=== PATIENT | female | born 1970 | race Native Hawaiian/Other Pacific Islander ===

== ENCOUNTER 2023-06-06 15:03 | Observation (INO) | payer OTHER ==
[~2023-06-06] VITALS: Ht 160 cm; Wt 115.0 kg
--- NOTE | 2023-06-06 17:00 | NUR ---
PT ARRIVES TO MED-SURG USES RESTROOM THEN MOVES TO THE CHAIR USING A WALKER NOT WT BEARING. PT HAS BOOT IN PLACE AGREES IT IS NOT TO BE REMOVED. LLE ELEVATED AND ICE APPLIED. PT RATES PAIN 2/10 AT THIS TIME. REPORT RECEIVED FROM GAYLE CORREA PT HAS HAD A FLEXARIL WELL TOLRDOL PRIOR TO TRANSPORT TO [facility]. PT DENIES NEED OF ADDITIONAL PAIN CONTROL AT THIS TIME. CALL LIGHT IN LAP PT ORIENTED TO ROOM AND ROUTINE. DR HAYWARD IS IN ROUTE.
[2023-06-06 17:03] VITALS: BP 151/83
--- NOTE | 2023-06-06 18:38 | NUR ---
DR HAYWARD IN TO SEE THIS PT ALL QUESTIONS ANSWERED AND SURGICAL PLAN MADE. PT REMAINS UP IN THE CHAIR. DECLINES OFFER OF PAIN MEDICATION DISCUSSED KEEPING PAIN UNDER CONTROL OPPOSED TO CATCHING UP PT VERBALIZES UNDERSTANDING.
--- NOTE | 2023-06-06 19:30 | NUR ---
REPORT RECEIVED FROM MADELINE MADSEN. pt UP IN CHAIR, LEGS ELEVATED. BOOT IN PLACE. pt DRINKING WATER. RATES PAIN 3/. DENIES NEEDS FOR MEDICATION. CALL LIGHT IN REACH. pt VERBALIZES UNDERSTANDING TO CALL BEFORE GETTING UP.
--- NOTE | 2023-06-06 19:42 | NUR ---
PHONE CALL TO , TELEPHONE ORDERS FROM [employer] FOR IVF TKO, ONE TIME PO TYLENOL ADMNISTRATION AND FOR TXA MECHANICAL FIELD ENGINEER TO OR. ORDERS VERIFIED USING REPEAT BACK METHOD. EMAR UPDATED.
[2023-06-06 21:14] VITALS: BP 140/85
--- NOTE | 2023-06-06 21:41 | NUR ---
pt UP IN CHAIR. ASSISTED TO PIVOT NON-WEIGHT BEARING TO HOSPITAL BED. pt RATES PAIN 3.5/[address]. SCHEDULED MEDICATION ADMINSITERED, PRN TORADOL. IV SITE FLUSHED WNL, BRISK BLOOD RETURN. ASSESSMENT COMPLETE. BED MADE FOR . pt REQUESTS TO SIT AT SIDE OF BED CALL LIGHT IN REACH. VERBALIZES INSTRUCTION TO USE CALL LIGHT BEFORE GETTING OUT OF BED.
[2023-06-07 00:10] VITALS: BP 128/73
--- NOTE | 2023-06-07 00:15 | NUR ---
pt AWAKENS TO RN ENTERING ROOM. pt ALLOWED DRINKS OF WATER, NOW NPO FOR PROCEDURE. 1PA WITH FWW TO PIVOT TO BSC FOR VOID. UNDERWEAR REMOVED, CHUX PLACED ON BED. pt IMPULSIVE WITH WALKER USE, DOES NOT FOLLOW INSTRUCTION TO STAY WITH WALKER, TURNS AND THROWS BODY ON BED. STATES "I SCARED YOU DIDN'T I". pt EDUCATION PROVIDED. VSS. pt DENIES PAIN AT REST, DENIES NEED FOR PRN MEDICATIONS. CALL LIGHT IN REACH. IN ROOM ON COUCH.
--- NOTE | 2023-06-07 02:16 | NUR ---
CHECKED ON pt. RESTING IN BED WITH EYES CLOSED. BREATHING EQUAL AND UNLABORED. AWAKE IN ROOM.
--- NOTE | 2023-06-07 04:17 | NUR ---
pt LYING IN BED ON BACK. BREATHING EQUAL AND UNLABORED. BOOT IN PLACE ON LEFT LEG.
[2023-06-07 06:29] VITALS: BP 120/72
--- NOTE | 2023-06-07 06:56 | NUR ---
SURGERY WIPE DOWN COMPLETE. 1PA WITH FWW, NON-WEIGHT BEARING TO BSC FOR VOID. BACK IN BED, LINENS, GOWN CHANGED. SCD ON RIGHT LEG. PREOP ANTIBIOTIC AND TXA HANGING. pt HAS CALL LIGHT IN REACH. NO COMPLAINTS OF PAIN.
--- NOTE | 2023-06-07 07:22 | NUR ---
PT TO O/R AT TIME OF SHIFT REPORT.
--- NOTE | 2023-06-07 08:37 | NUR ---
UR NOTE MCG ANKLE FRACTURE, CLOSED, OPEN REDUCTION, INTERNAL FIXATION (ISC) OBSERVATION 06/06/23 MET CLINICAL INDICATIONS FOR ADMISSION - OBSERVATION STATUS
[2023-06-07] MEDS ORDERED: HYDROCODON-ACE1 EA11 PO (08:42)
[2023-06-07] MEDS ORDERED: DICLOFENAC SODI75 MG PO (08:42)
[2023-06-07] MEDS ORDERED: ASPIRIN EC325 MG PO (08:43)
[2023-06-07 09:45] VITALS: BP 95/53
--- NOTE | 2023-06-07 09:53 | NUR ---
PT FROM O/R VIA BED, REPORT RECEIVED. IS PRESENT. PT ALERT AND INTERACTIVE DENIES PAIN. FRESH H20 AT BEDSIDE WITH CALL LIGHT, PHONE, AND NEEDED ITEMS. PT DENIES HUNGER OR NEED OF ANYTHING
--- NOTE | 2023-06-07 10:20 | NUR ---
IN TO RROM, PATIENT AWAKE TESTING ON PHONE. DIMAS AT THE BEDSIDE. DISCUSSED GETTING SCOOTER FROM [facility]. CONTACTED [facility], SCOOTER AVAILABLE. TO OBTAIN SCOOTER AND MEDICATION PRIOR TO DISCHARGE. NO OTHER CASE MANAGEMENT NEEDS AT THIS TIME. TENA CORREA UPDATED.
--- NOTE | 2023-06-07 10:23 | NUR ---
PT GOES TO FILL RX AND GET MEDICAL EQUIPMENT. PT RESTING IN BED SATS 97% ON RA SHE IS DRINKING WATER AND WATCHING TV. DISCUSSED PAIN CONTROL AND KEEPING UP WITH PAIN OPPOSED TO CATCHING UP. UNDERSTANDING VERBALIZED, PT AGREES TO NOTIFY STAFF OF NEEDS. SNACK PROVIDED TO BE EATEN PRIOR TO GABAPENTIN AND OTHER SCHEDULED ITEMS. CALL LIGHT IN LAP NEEDS DENIED
--- NOTE | 2023-06-07 10:32 | NUR ---
06/07/23 1032 Su Jason Jayna 0844- PT ARRIVES TO PACU, SEMI DUGAN POSITION. OPA IN PLACE WITH 6L O2 PER MASK, MAINTAINING OWN AIRWAY WITH JUST OPA. LR INFUSING TO RW IV. ALL MONITORS IN PLACE. BOOT AND DRESSING TO LEFT ANKLE, CDI, PULSES INTACT. ICE PACK PLACED TO LEFT ANKLE. PT NON REACTIVE TO STIMULUS AT THIS TIME. 0848- CBG 124 0858- PT REACTIVE TO VERBAL AND TACTILE STIMULUS, FOLLOWS COMMANDS TO REMOVE OPA. O2 LEFT IN PLACE AT THIS TIME. DENIES PAIN AND NAUSEA. PT BACK TO RESTING, WILL CONTINUE TO MONITOR. 0910- O2 SATS REMAIN MID TO HIGH 90'S ON 6L PER MASK, MOVED TO ROOM AIR AT THIS TIME, WILL CONTINUE TO MONITOR. 0927- PT CONTINUES TO REST INTERMITTENTLY. O2 SATS DROP TO 88-89% ON ROOM AIR, PT FOLLOWS DIRECTION TO TAKE DEEP BREATHS AND SATS IMPROVE TO MID 90'S. 2L O2 APPLIED PER NC WHILE RESTING. 0940- PT TAKEN BACK TO MED/SURG ROOM 108. IN ROOM WAITING FOR PT. BOOT AND DRESSING REMAIN CDI TO LEFT ANKLE WITH ICE IN PLACE. IV FLUIDS COMPLETE AND IV SALINE LOCKED. PT REMAINS ON 2L PER NC. BED LOWEST POSITION AND PLUGGED IN. DEVIN RN AT BEDSIDE, REPORT GIVEN. PT ALERT AND ANSWERING QUESTIONS APPROPRIATELY, JOKING WITH FAMILY. CARE OF PT TURNED OVER AT THIS TIME.
--- NOTE | 2023-06-07 10:41 | OR ---
[facility] [address] [place], [place] [address] Signed DATE OF OPERATION: 06/07/2023 SURGEON: Chuy Mancuso MD PREOPERATIVE DIAGNOSIS: Bimalleolar fracture dislocation, left ankle. POSTOPERATIVE DIAGNOSIS: Bimalleolar fracture dislocation, left ankle. PROCEDURE PERFORMED: Open reduction and internal fixation of left bimalleolar ankle fracture. FLOOR TILING PROFESSIONAL: Smita Durbin PA-C. Smita was present and critical for all portions of the procedure. ANESTHESIA: Spinal. BLOOD LOSS: None. TOURNIQUET TIME: 30 minutes. IMPLANTS: A 7-hole Jael 05/19 tubular plate with 9 total screws. BRIEF HISTORY: Jacobo is a 53-year-old female, who slipped on the ice yesterday fracturing her ankle and dislocating it. She was seen at an outside facility and they contacted me and I agreed to accept the patient. Risks, benefits, and alternatives were discussed of the surgery with her and she elected to proceed. DESCRIPTION OF PROCEDURE: Once consent was obtained, she was taken to the operating room. After adequate anesthesia, she was placed on the operating room table. All downside pressure points were well padded. The left leg was placed in a well-padded proximal thigh tourniquet. The leg was then prepped and draped in a standard sterile fashion, exsanguinated using Electronically Signed By: CHUY MANCUSO MD 06/07/23 1041 PATIENT NAME: BATTE,JACOBO OPERATIVE REPORT DATE OF : 70 REPORT #: [id number] PHYSICIAN: CHUY MANCUSO MD PCP: NO PRIMARY CARE PHYSICIAN REPORT IS CONFIDENTIAL AND NOT TO BE RELEASED WITHOUT AUTHORIZATION [facility] [address] [place], [place] [address] Signed Esmarch bandage and tourniquet inflated to 250 mmHg. The fracture was then reduced under direct image intensifier guidance. The lateral aspect of the ankle was approached through a longitudinal incision carried through the skin and subcutaneous tissue. The fracture was then distracted, cleared of debris and reduced and cross clamped. A single screw was then placed from anterior to posterior using and the clamp was removed. The 7-hole plate was then centered over the posterior lateral aspect of the fibula and held with the central screw. It was then checked using image intensifier and found to be well placed. Remaining screw holes were drilled and appropriate length screws were placed. The radiograph showed the screw lengths to be good and plate placement to be adequate. The posterior malleolus was then checked and found to be reduced with dorsiflexion of the foot. A single 3.5 screw was then placed from anterior to posterior engaging the posterior malleolus and lagging it into position. Motion of the ankle under fluoroscopy showed no significant instability. The wounds were then copiously irrigated with normal saline. The deep tissues laterally were closed with 2-0 Monocryl, subcutaneous tissue with 2-0 Monocryl and all skin incisions closed with cristobal. The wounds were dressed with Acticoat-7 dressing, ABDs and Freedom wrap. She was placed in a fracture boot, taken to the recovery room in satisfactory condition. All sponge, needle, and instrument counts were correct. Chuy Mancuso MD BA/MODL /[id number] Copies: ~ Electronically Signed By: CHUY MANCUSO MD 06/07/23 1041 PATIENT NAME: JACOBO CHAVEZ OPERATIVE REPORT DATE OF : 70 REPORT #: [id number] PHYSICIAN: CHUY MANCUSO MD PCP: NO PRIMARY CARE PHYSICIAN REPORT IS CONFIDENTIAL AND NOT TO BE RELEASED WITHOUT AUTHORIZATION
--- NOTE | 2023-06-07 11:17 | NUR ---
PT UP TO THE THE BSC ABLE TO VOID WITHOUT DIFFICULTY. RETURNS TO RESTING IN BED.
--- NOTE | 2023-06-07 12:33 | NUR ---
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 PT REPORTS HER LEG IS STARTING TO THROB A LITTLE. AGREES TO PAIN PILL AT THIS TIME. IS BACK WITH LUNCH ITEMS AND RX FILLED.
--- NOTE | 2023-06-07 13:28 | NUR ---
ROUNDS. PT AND EXHIBIT STRONG RELATIONAL RESOURCES; CONSENTED TO PRAYER. FACILITATED STORY-TELLING; LISTENED EMPATHETICALLY; PROVIDED SUPPORTIVE PRESENCE; NORMALIZED EXPERIENCE; PROVIDED PRAYER. PT AND EXPRESS GRATITUDE.
[2023-06-07 14:22] VITALS: BP 136/64
--- NOTE | 2023-06-07 14:24 | NUR ---
PT REPORTS P/T CAME IN TO WORK WITH HER AGAIN LEG NOT WORKING WELL ENOUGH. P/T WILL BE BACK A LITTLE LATER. FRESH H20 TO BEDSIDE CALL LIGHT IN REACH. PT AGREES SHE IS COMFORTABLE.
--- NOTE | 2023-06-07 15:42 | NUR ---
PT RESTING ON THE BED IN HER STREET CLOTHES, BOOT IN PLACE. PT DENIES PAIN OR NEEDS OF. IS PRESENT IN THE ROOM. PT AGREES HER NORMAL SENSATION TO LE IS RETURNING TO NORMAL, HOWEVER SHE STILL CAN'T EXTEND HER LEG. SHE STATES SHE FEELS LIKE IT'S GETTING BETTER, JUST NOT QUITE AWAKE.
--- NOTE | 2023-06-07 16:05 | NUR ---
P/T MEETS WITH PT AGAIN AND PT STILL FAILS TO BE ABLE TO EXTEND HER LEG. DR HAYWARD SUPER[employer] IS CONTACTED BY P/T TO DISCUSS PLAN GOING FORWARD. PT IS TO STAY OVER NIGHT ALLOWING TIME FOR BLOCK TO WEAR OFF FULLY. SHE HAS STEPS AT HOME SHE MAY NOT BE ABLE TO NAVIGATE.
--- NOTE | 2023-06-07 17:40 | NUR ---
PT RESTING IN BED WATCHING TV AGREES TO PAIN PILL STATING IT IS STARTING TO THROB AND LETS STAY AHEAD OF IT. HAS GONE TO GET TAKE OUT FOOD. PT DENIES FURTHER NEEDS
[2023-06-07 17:44] VITALS: BP 108/56
--- NOTE | 2023-06-07 19:18 | NUR ---
REPORT RECEIVED FROM MADELINE MADSEN. pt RESTING IN BED AWAKE. DENIES PAIN AT REST. BOOT IN PLACE LLE. CALL LIGHT AND PERSONAL SUPPLIES IN REACH.
[2023-06-07 20:21] VITALS: BP 112/62
--- NOTE | 2023-06-07 20:29 | NUR ---
VS AND I/O COMPLETED. PT IN BED, IN CHAIR. NO OTHER NEEDS AT THIS TIME.
--- NOTE | 2023-06-07 21:15 | EKG ---
[facility] [address] [place], [place] [address] Signed Normal sinus rhythm with sinus arrhythmia Normal ECG No previous ECGs available Confirmed by BIGG CAGLE MD ([id number]) on 06/07/2023 9:14:54 PM Electronically Signed By: BIGG CAGLE 06/07/235 PATIENT NAME: JACOBO CHAVEZ Electrocardiogram DATE OF : 70 PHYSICIAN: BIGG CAGLE REPORT #: [id number] REPORT IS CONFIDENTIAL AND NOT TO BE RELEASED WITHOUT AUTHORIZATION
--- NOTE | 2023-06-07 21:30 | NUR ---
pt RESTING IN BED AWAKE. ASSESSMENT COMPLETE. pt DENIES PAIN. SCHEDULED PAIN MEDICATION ADMINSITERED. CSM INTACT BLE PER pt. CAP REFILL <3 SECONDS BLE. pt WIGGLING TOES. FRACTURE BOOT IN PLACE. SCD PLACED ON RLE. pt REPORTS UP TO BSC WITH , VERBALIZES UNDERSTANDING TO USE CALL LIGHT BEFORE GETTING UP, TO HAVE STAFF MEMBER IN ROOM. CALL LIGHT IN REACH. IN ROOM.
--- NOTE | 2023-06-07 23:05 | NUR ---
pt DROWSY, RESTING IN BED. PRN PAIN MEDICATION ADMINISTERED FOR PAIN CONTROL. FRACTURE BOOT IN PLACE. SCD ON. ICE WATER REFILLED. CALL LIGHT IN REACH. SLEEPING IN CHAIR.
[2023-06-08 02:03] VITALS: BP 119/66
--- NOTE | 2023-06-08 02:28 | NUR ---
pt SLEEPING, AWAKENS TO VOICE, SPO2 88-90% ON RA. 1L OXYGEN BY NC APPLIED, SPO2 INCREASES TO 95%. VS COMPLETE. pt DENIES PAIN. TEMPERATURE 100.7 ORALLY, INCENTIVE SPIROMETER USED, TEMPERATURE 99.[address] SCD ON RLE. ASSESSMENT COMPLETE. pt DENIES ANY PAIN, CSM INTACT, SOME CHRONIC NUMBNESS PER pt. pt ABLE TO EXTEND LEG AT THIS TIME. CALL LIGHT IN REACH. IN CHAIR, AWAKE DURING CARES.
--- NOTE | 2023-06-08 03:12 | NUR ---
pt RESTING IN BED WITH EYES CLOSED. SPO2 WNL WITH 1L OXYGEN BY NC IN PLACE. LYING IN BED WITH pt. SCD ON. FRACTURE BOOT ON.
--- NOTE | 2023-06-08 03:42 | NUR ---
pt AWAKENS TO VOICE. MOVED pt AND BELONGINGS TO ROOM 119 FOR [facility] TO HAVE ROOM 108 PER LEAD MINER BLASTING. pt DENIES PAIN, REQUESTING TO REST.
[2023-06-08 06:17] VITALS: BP 104/67
--- NOTE | 2023-06-08 06:43 | NUR ---
CPOX ALARMING, SPO2 89% ON RA, 1L OXYGEN PLACED ON pt. SPO2 INCREASES TO 94%. CALL LIGHT IN REACH.
--- NOTE | 2023-06-08 07:10 | NUR ---
REPORT RECEIVED FROM DATABASE ADMINISTRATION ASSOCIATE MADELINE MORENO. PATIENT IS SITTING UPRIGHT AT THE EDGE OF BED. PATIENT WITH CPOX IN PLACE. PATIENT USING THE INCENTIVE SPIROMETER AT THIS TIME. PATIENT WITH VISITOR AT THE BEDSIDE. PATIENT STATED NO FURTHER NEEDS AT THIS TIME. CALL LIGHT AND PERSONAL BELONGINGS ARE WITHIN REACH.
--- NOTE | 2023-06-08 09:20 | NUR ---
0900 MEDICATIONS ARE ADMINISTERED PER THE EMAR. FULL ASSESSMENT COMPLETE AND DOCUMENTED IN THE CHART. PATIENT IS SITTING UPRIGHT IN THE RECLINER AT THIS TIME. PATIENT IS ON ROOM AIR AND LUNG SOUNDS ARE CLEAR BILATERALLY IN ALL LUNG VIVEROS. PATIENT WITH NORMAL S1 AND S2 ON AUSCULTATION. RADIAL PULSES ARE STRONG IN BOTH UPPER EXTREMITIES. BOWEL TONES ARE ACTIVE IN ALL FOUR QUADRANTS. PATIENT STATED NO PAIN AT THIS TIME. PATIENT WITH NUMBNESS IN BILATERAL LOWER EXTREMITIES AT BASELINE. PATIENT WITH VISITOR TAKING A TRIP TO THE CAR OF STUFF. PATIENT WITH LEFT LOWER EXTREMITY WITH FRACTURE BOOT ON. IV SITE IS CLEAN, DRY, AND INTACT. IV SITE FLUSHED WELL WITH 10 ML NORMAL SALINE AND IS NOW SALINE LOCKED. PATIENT STATED NO FURTHER NEEDS AT THIS TIME. CALL LIGHT AND PERSONAL BELONGINGS ARE WITHIN REACH.
[2023-06-08 09:58] VITALS: BP 124/66
--- NOTE | 2023-06-08 14:14 | NUR ---
NOtified by PT they are recommending PT for this pt. I texted Dr. Mancuso and Smita at the office and let them know. Smita returned my call and pt has a PCP in [place] who will follow her when she is released for PT. They will see pt in approx 1 week and determine if she is released at that time. Orders will be taken care by the ortho office and pts PCP.
== END 2023-06-08 10:20 | disposition home or self-care (01) ==
LOC: MS 15:03
PROVIDERS: ADMIT Specialist; ATTEND Specialist
PROC: 0QSH04Z Reposition Left Tibia with Internal Fixation Device, Open Approach (ICD-10-PCS; 2023-06-07)
PROC: 3E0T3BZ Introduction of Anesthetic Agent into Peripheral Nerves and Plexi, Percutaneous Approach (ICD-10-PCS; 2023-06-07)
PROC: 3E0T3BZ Introduction of Anesthetic Agent into Peripheral Nerves and Plexi, Percutaneous Approach (ICD-10-PCS; 2023-06-07)
PROC: 0QSK04Z Reposition Left Fibula with Internal Fixation Device, Open Approach (ICD-10-PCS; principal; 2023-06-07 09:45)
DX: S82.842A Displaced bimalleolar fracture of left lower leg, initial encounter for closed fracture (principal); W00.0XXA Fall on same level due to ice and snow, initial encounter
CPT/HCPCS: 01480; 64445; 64447; 73600; 93005; 93010; 96374; 96375; 97116; 97530; A9270; G0378; J0131; J0690; J0735; J1100; J1885; J2001; J2250; J2405; J2704; J2765; J3010; J7121